=== PATIENT | male | born 2000 | race Two or more races ===

== ENCOUNTER 2021-11-19 14:46 | Emergency (ER) | payer SELFPAY ==
[~2021-11-19] VITALS: Ht 182.9 cm; Wt 74.2 kg
--- NOTE | 2021-11-19 15:28 | PHYS DOC ---
Past Medical History Past Medical History: Other Additional Past Medical Histor: ADHD,TBI (ATA FUENTES Janine GENERATION ENGINEER) Past Surgical History: No Surgical History (ATA FUENTES Janien GENERATION ENGINEER) Smoking Status: Current Every Day Smoker Alcohol Use: Occasionally (ATA FUENTES Janine KUMAR) General Adult EDM: Chief Complaint: SEXUALLY TRANSMITTED DISEASE HPI: HPI: Patient is a 21 year old male presented to the ED today stating he has had penile discharge and dysuria for 1 day. He states he was cheating on his girlfriend with a male partner. (ATA FUENTES JOSÉ) Review of Systems: Review of Systems: Constitutional: Denies fever or chills. [] GI: Denies abdominal pain, nausea, vomiting, bloody stools or diarrhea. [] : Reports penile discharge and dysuria. Musculoskeletal: Denies back pain or joint pain. [] Integument: Denies rash. [] Neurologic: Denies headache, focal weakness or sensory changes. [] Psychiatric: Denies depression or anxiety. [] (ATA FUENTES Janine KUMAR) Heart Score: C/O Chest Pain: N/A Risk Factors: Risk Factors: DM, Current or recent (<one month) smoker, HTN, HLP, family history of CAD, obesity. Risk Scores: Score 0 - 3: 2.5% MACE over next 6 weeks - Discharge Home Score 4 - 6: 20.3% MACE over next 6 weeks - Admit for Clinical Observation Score 7 - 10: 72.7% MACE over next 6 weeks - Early Invasive Strategies (RAHEELJOSE EDUARDOAsaATA Janine KUMAR) Current Medications: Current Medications Medications (Trade) Dose Ordered Sig/Kang Start Time Stop Time Status Last Admin Dose Admin Ceftriaxone Sodium (Rocephin Im) 500 mg 1X ONCE 11/19/21 15:30 11/19/21 15:31 Doxycycline Hyclate (Vibra-Tab) 100 mg 1X ONCE 11/19/21 15:30 11/19/21 15:31 UNV Metronidazole (Flagyl) 2,000 mg 1X ONCE 11/19/21 15:30 11/19/21 15:31 UNV (ATA FUENTES GENERATION ENGINEER) Allergies: Allergies: Allergies Coded Allergies Type Severity Reaction Last Updated Verified No Known Drug Allergies 09/12/20 No (ATA FUENTES APRN) Physical Exam: PE: Constitutional: Well developed, well nourished, no acute distress, non-toxic appearance. [] Skin: Warm, dry, no erythema, no rash. [] Back: No tenderness, no CVA tenderness. [] Extremities: No tenderness, no cyanosis, no clubbing, ROM intact, no edema. [] Neurologic: Alert and oriented X 3, normal motor function, normal sensory function, no focal deficits noted. [] Psychologic: Affect normal, judgement normal, mood normal. [] (ATA FUENTES APRN) PE: : No penile lesions, + white penile discharge when the patient squeezed his proximal penis. (CHRISTIN ESCALONA MD) Current Patient Data: Vital Signs: Vital Signs Date Time Temp Pulse Resp B/P (MAP) Pulse Ox O2 Delivery O2 Flow Rate FiO2 11/19/21 14:46 98.4 100 17 133/69 (90) 98 Room Air 98.4 (ATA FUENTES APRN) EKG: EKG: [] (ATA FUENTES APRN) Radiology/Procedures: Radiology/Procedures: [] (ATA FUENTES APRN) Course & Med Decision Making: Course & Med Decision Making Pertinent Labs and Imaging studies reviewed. (See chart for details) This a 21-year-old male patient presented to the ED today with penile discharge and dysuria for 1 day. Patient is concerned about STDs and would like to be treated. Urine positive for UTI. Given Rocephin IM in the ED and started on doxycycline, STD education provided (ATA FUENTES APRN) Bernadine Disclaimer: Bernadine Disclaimer: This electronic medical record was generated, in whole or in part, using a voice recognition dictation system. (ATA FUENTES APRN) Departure Departure Impression: Primary Impression: Concern about STD in male without diagnosis Disposition: 01 HOME / SELF CARE / HOMELESS Condition: STABLE Referrals: NO PCP (PCP) follow up in one week with the health department Patient Instructions: Sexually Transmitted Disease Additional Instructions: You were tested for STDs and treated in the emergency room. We sent doxycycli ne to the pharmacy, ensure you complete it. Please use protection at all times. Contact all your sex partners on abdominal you are positive for STDs and have them get treated at the health department. NO sex for one week Scripts Doxycycline Hyclate (DOXYCYCLINE HYCLATE) 100 Mg Tablet 1 TAB PO BID, #14 TAB Prov: ATA FUENTES APRN 11/19/21 ATA FUENTES APRN Nov 19, 2021 15:27 CHRISTIN ESCALONA MD Nov 19, 2021 18:20
[2021-11-19] MEDS ORDERED: cefTRIAXone IM 500 MG VIAL. IM ONE (15:30)
[2021-11-19] MEDS ORDERED: metroNIDAZOLE 500 MG TABLET PO ONE (15:30)
[2021-11-19] MEDS ORDERED: DOXYCYCLINE HYCLATE 100 MG TABLET PO ONE (15:30)
[2021-11-19 15:46] LABS: BILIRUBIN,URINE NEGATIVE (NEG); CLARITY,URINE CLOUDY; COLOR,URINE YELLOW; NITRITE,URINE NEGATIVE (NEG); PH,URINE 7.5 (<5.0-8.0); PROTEIN,URINE NEGATIVE (NEG-TRACE)
[2021-11-19 15:57] LABS: AMORPHOUS SEDIMENT,UR PRESENT /HPF; BACTERIA,URINE 0 /HPF (0-FEW); RBC,URINE 0 /HPF (0-2); WBC,URINE TNTC /HPF (0-4)
[2021-11-19] MEDS ORDERED: DOXY100T PO (16:29)
[2021-11-19 16:32] VITALS: BP 117/76
== END 2021-11-19 16:34 | disposition home or self-care (01) ==
LOC: ER 14:46
DX: Z20.2 Contact with and (suspected) exposure to infections with a predominantly sexual mode of transmission (principal); Z87.820 Personal history of traumatic brain injury; F17.210 Nicotine dependence, cigarettes, uncomplicated
CPT/HCPCS: 81001; 87086; 87491; 87591; 96372; 99283; J0696

== ENCOUNTER 2021-12-07 10:44 | Emergency (ER) | payer SELFPAY ==
[~2021-12-07] VITALS: Ht 182.9 cm; Wt 72.7 kg
[~2021-12-07 10:44] MED LIST: DOXY100T PO
[2021-12-07 11:32] LABS: BILIRUBIN,URINE NEGATIVE (NEG); CLARITY,URINE CLOUDY; COLOR,URINE STRAW; PROTEIN,URINE 30 mg/dL (NEG-TRACE)
[2021-12-07 11:33] LABS: NITRITE,URINE NEGATIVE (NEG); UROBILINOGEN,URINE 0.2 mg/dL (0.2 mg/dL)
[2021-12-07 11:34] LABS: BACTERIA,URINE FEW /HPF (0-FEW); RBC,URINE FIELD OBSCURED /HPF (0-2); WBC,URINE TNTC /HPF (0-4)
[2021-12-07] MEDS ORDERED: DOXY100C3 PO (11:39)
--- NOTE | 2021-12-07 11:39 | PHYS DOC ---
Past Medical History Past Medical History: Other Additional Past Medical Histor: ADHD,TBI Past Surgical History: No Surgical History Smoking Status: Current Every Day Smoker Alcohol Use: Occasionally General Adult EDM: Chief Complaint: SEXUALLY TRANSMITTED DISEASE HPI: HPI: Patient is a 21 year old male who presents with dysuria and profuse penile discharge. Patient states that he is currently wearing an adult diaper due to the amount of urethral discharge he has. He states that is malodorous and yellow. Patient reports he was treated for gonorrhea chlamydia about 3 weeks ago, but his partner did not receive treatment at that time. He denies any rashes or other skin lesions at this time. Patient has no other complaints. Review of Systems: Review of Systems: ROS negative or noncontributory except as mentioned in HPI. Heart Score: C/O Chest Pain: No Current Medications: Current Medications Medications (Trade) Dose Ordered Sig/Kang Start Time Stop Time Status Last Admin Dose Admin Ceftriaxone Sodium (Rocephin Im) 500 mg 1X ONCE 12/07/21 11:30 12/07/21 11:31 UNV Doxycycline Hyclate (Vibra-Tab) 100 mg 1X ONCE 12/07/21 11:30 12/07/21 11:31 UNV Allergies: Allergies: Allergies Coded Allergies Type Severity Reaction Last Updated Verified No Known Drug Allergies 09/12/20 No Physical Exam: PE: Constitutional: Well developed, well nourished, no acute distress, non-toxic appearance. HENT: Normocephalic, atraumatic, bilateral external ears normal, oropharynx moist, no oral exudates, nose normal. Eyes: EOMI, conjunctiva normal, no discharge. Neck: Normal range of motion, no tenderness, supple, no stridor. Abdomen: Appropriate and symmetrical hair growth pattern, no rash or skin lesions, circumcised, copious yellow-purulent and malodorous discharge noted at urethral meatus and on disposable brief patient is wearing. Skin: Warm, dry, no erythema, no rash. Neurologic: Alert and oriented x4, no focal deficits noted. Current Patient Data: Labs: Laboratory Tests Test 12/07/21 11:15 Urine Collection Type Void Urine Color Straw Urine Clarity Cloudy Urine pH 6.0 (<5.0-8.0) Urine Specific [place] >=1.030 (1.000-1.030) Urine Protein 30 mg/dL (NEG-TRACE) Urine Glucose (UA) Negative mg/dL (NEG) Urine Ketones (Stick) Negative mg/dL (NEG) Urine Blood Small (NEG) Urine Nitrite Negative (NEG) Urine Bilirubin Negative (NEG) Urine Urobilinogen Dipstick 0.2 mg/dL (0.2 mg/dL) Urine Leukocyte Esterase Large (NEG) Urine RBC Field obscured /HPF (0-2) Urine WBC Tntc /HPF (0-4) Urine Bacteria Few /HPF (0-FEW) Urine Mucus Slight /LPF Vital Signs: Vital Signs Date Time Temp Pulse Resp B/P (MAP) Pulse Ox O2 Delivery O2 Flow Rate FiO2 12/07/21 10:57 98.5 93 18 104/71 (82) 99 Room Air 98.5 Course & Med Decision Making: Course & Med Decision Making Pertinent Labs and Imaging studies reviewed. (See chart for details) Kinesense Disclaimer: Kinesense Disclaimer: This electronic medical record was generated, in whole or in part, using a voice recognition dictation system. Departure Departure Impression: Primary Impression: Sexually transmitted disease (STD) Additional Impressions: Abnormal penile discharge, without blood Dysuria Counseling on sexually transmitted disease Disposition: HOME / SELF CARE / HOMELESS Condition: STABLE Referrals: NO PCP (PCP) Patient Instructions: Safe Sex, Sexually Transmitted Disease, [id number] Additional Instructions: EMERGENCY DEPARTMENT GENERAL DISCHARGE INSTRUCTIONS Thank you for coming to [facility] Emergency Department (ED) today and trusting us with you care. We trust that you had a positive experience in our Emergency Department. If you wish to speak to the department management, you may call the director at . YOUR FOLLOW UP INSTRUCTIONS ARE FOLLOWS: 1. Follow up with your primary care doctor. If you do not have a primary doctor, please ask for a resource list of physicians or clinics that may be able to assist you with follow up care. 2. The emergency provider has interpreted your imaging studies, if any were ordered. The radiology imaging technician also reviewed them. If there is a change in the findings, you will be notified in 48 hours when at all possible. 3. If a lab test or culture has been done, your results will be reviewed and you will be notified if you need a change in treatment. 4. DO NOT HAVE SEXUAL INTERCOURSE FOR AT LEAST 10 DAYS. Follow instructions verbalized to you and refer to the printouts if needed. ADDITIONAL INSTRUCTIONS AND INFORMATION: 1. Your care today has been supervised by a physician who is specially trained in emergency care. Many problems require more than one evaluation for a complete diagnosis and treatment. We recommend that you schedule your follow up appointment as recommended to ensure complete treatment of you illness or injury. If you are unable to obtain follow up care and continue to have a problem, or if your condition worsens, we recommend that you return to the ED. 2. We are not able to safely determine your condition over the phone nor are we able to give sound medical advice over the phone. For these safety reasons, if you call for medical advice we will ask you to come to the ED for further evaluation. 3. If you have any questions regarding these discharge instructions please call the ED at . SAFETY INFORMATION: In the interest of safety, wellness, and injury prevention; we encourage you to wear your seat belt, if you smoke; quite smoking, and we encourage family to use a protective helmet for bicycling and other sporting events that present an increased risk for head injury. IF YOUR SYMPTOMS WORSEN OR NEW SYMPTOMS DEVELOP, OR YOU HAVE CONCERNS ABOUT YOUR CONDITION; OR IF YOUR CONDITION WORSENS WHILE YOU ARE WAITING FOR YOUR FOLLOW UP APPOINTMENT; EITHER CONTACT YOUR PRIMARY CARE DOCTOR, THE PHYSICIAN WHOSE NAME AND NUMBER YOU WERE GIVEN, OR RETURN TO THE ED IMMEDIATELY. Scripts Doxycycline Hyclate (DOXYCYCLINE HYCLATE) 100 Mg Capsule 1 CAP PO BID, #13 CAP Prov: MIGUEL ANGEL WALDEN 12/07/21 MIGUEL ANGEL WALDEN Dec 07, 2021 11:39
[2021-12-07] MEDS ORDERED: DOXYCYCLINE HYCLATE 100 MG TABLET PO ONE (12:00)
[2021-12-07] MEDS ORDERED: cefTRIAXone IM 500 MG VIAL. IM ONE (12:00)
[2021-12-07 12:02] VITALS: BP 113/73
== END 2021-12-07 12:01 | disposition home or self-care (01) ==
LOC: ER 10:44
DX: A64 Unspecified sexually transmitted disease (principal); R36.9 Urethral discharge, unspecified; R30.0 Dysuria; F17.200 Nicotine dependence, unspecified, uncomplicated; F90.9 Attention-deficit hyperactivity disorder, unspecified type; Z87.820 Personal history of traumatic brain injury
CPT/HCPCS: 81001; 87086; 87491; 87591; 96372; 99283; J0696